=== PATIENT | female | born 1990 | race Caucasian/White ===

== ENCOUNTER → 2020-06-15 14:50 | Outpatient (BNVA) | payer OTHER, SELFPAY | PROVIDERS: PCP Family Medicine; Visit Provider Physician Assistant Medical | DX: S46.001D Unspecified injury of muscle(s) and tendon(s) of the rotator cuff of right shoulder, subsequent encounter (principal); X58.XXXD Exposure to other specified factors, subsequent encounter; M77.02 Medial epicondylitis, left elbow; M25.512 Pain in left shoulder | CPT/HCPCS: 73030; 99214 ==

== ENCOUNTER 2020-06-27 18:38 | Outpatient (REF) | payer OTHER, SELFPAY ==
--- NOTE | 2020-06-27 | MR_ITS ---
EXAMINATION: MR SHOULDER WITHOUT CONTRAST, RIGHT CLINICAL INFORMATION: Repetitive use injury. Persistent pain. COMPARISON: Radiograph dated 09/16/2019 TECHNIQUE: MRI of the shoulder without contrast was performed on a high-field scanner. FINDINGS: ROTATOR CUFF: There is mild supraspinatus tendinosis. Subcortical marrow edema at the greater tuberosity is likely reactive to the overlying mild tendinosis. No discrete fractures are identified. Infraspinatus, subscapularis, and teres minor are normal. No muscle atrophy or fatty infiltration. BICEPS: Normal. CORACOACROMIAL ARCH: The undersurface of the acromion is flat with no subacromial spur. The acromioclavicular joint is normal. Trace subacromial-subdeltoid bursal fluid. LABRUM/CAPSULE: Normal. GLENOHUMERAL JOINT/MARROW: A small bone island is present in the humeral head. As mentioned above, there is marrow edema signal in the greater tuberosity deep to the supraspinatus tendon insertion. No fractures are identified. Articular cartilage is well preserved. No joint effusion. MR/MR shoulder RT wo con IMPRESSION: 1. Mild supraspinatus tendinosis with reactive subcortical edema signal in the greater tuberosity deep to the insertion. No tears. 2. Minimal subacromial-subdeltoid bursitis.
== END 2020-06-27 18:39 | disposition home or self-care (01) ==
LOC: HO.MRI 18:38
PROVIDERS: PCP Family Medicine; Visit Provider Internal Medicine
DX: S49.91XA Unspecified injury of right shoulder and upper arm, initial encounter (principal)
CPT/HCPCS: 73221

== ENCOUNTER → 2020-06-30 10:28 | Outpatient (BNVA) | payer OTHER, SELFPAY | PROVIDERS: PCP Family Medicine; Visit Provider Physician Assistant Medical | DX: Z13.89 Encounter for screening for other disorder (principal) | CPT/HCPCS: 99213 ==

== ENCOUNTER 2020-07-13 08:41 | Outpatient (REF) | payer OTHER, SELFPAY ==
--- NOTE | 2020-07-13 08:58 | XR_ITS ---
EXAMINATION: XR SHOULDER, RIGHT CLINICAL INFORMATION: Right shoulder pain COMPARISON: June 27, 2020 TECHNIQUE: Three views of the right shoulder. FINDINGS: The bones and soft tissues are normal. No fracture. Glenohumeral and acromioclavicular alignment is anatomic with normal joint space. No abnormal soft tissue calcifications. XR/XR shoulder RT min 2V IMPRESSION: No significant right shoulder abnormality appreciated.
== END 2020-07-13 08:42 | disposition home or self-care (01) ==
LOC: HO.HOSX 08:41
PROVIDERS: Visit Provider Orthopaedic Surgery
DX: S46.811A Strain of other muscles, fascia and tendons at shoulder and upper arm level, right arm, initial encounter (principal); M25.511 Pain in right shoulder
CPT/HCPCS: 73030; 99202

== ENCOUNTER → 2020-07-29 14:02 | Outpatient (BNVA) | payer OTHER, SELFPAY | PROVIDERS: PCP Family Medicine; Visit Provider Physician Assistant Medical | DX: M75.81 Other shoulder lesions, right shoulder (principal); M77.02 Medial epicondylitis, left elbow; M77.01 Medial epicondylitis, right elbow | CPT/HCPCS: 99213 ==

== ENCOUNTER → 2021-12-07 12:25 | Outpatient (BNVA) | payer OTHER, SELFPAY | PROVIDERS: PCP Family Medicine; Visit Provider Physician Assistant | DX: M75.91 Shoulder lesion, unspecified, right shoulder (principal) | CPT/HCPCS: 99203 ==

== ENCOUNTER → 2021-12-21 14:50 | Outpatient (BNVA) | payer OTHER, SELFPAY | PROVIDERS: PCP Family Medicine; Visit Provider Internal Medicine | DX: M75.91 Shoulder lesion, unspecified, right shoulder (principal) | CPT/HCPCS: 99213 ==

== ENCOUNTER → 2021-12-28 14:44 | Outpatient (BNVA) | payer OTHER, SELFPAY | PROVIDERS: PCP Family Medicine; Visit Provider Internal Medicine | DX: M75.91 Shoulder lesion, unspecified, right shoulder (principal) | CPT/HCPCS: 99213 ==

== ENCOUNTER → 2022-01-08 14:26 | Outpatient (BNVA) | payer OTHER, SELFPAY | PROVIDERS: PCP Family Medicine; Visit Provider Internal Medicine | DX: M75.31 Calcific tendinitis of right shoulder (principal) | CPT/HCPCS: 99213 ==

== ENCOUNTER → 2022-01-22 14:54 | Outpatient (BNVA) | payer OTHER, SELFPAY | PROVIDERS: PCP Family Medicine; Visit Provider Internal Medicine | DX: M75.31 Calcific tendinitis of right shoulder (principal) | CPT/HCPCS: 99213 ==